=== PATIENT | female | born 1995 | race Caucasian/White ===

== ENCOUNTER 2018-01-23 21:15 | Emergency (ER) | payer BC ==
[2018-01-23] MEDS ORDERED: ACETAMINOPHEN 1000 MG/100 ML VIAL (NON FORMULARY) IVPB ONE (21:47)
[2018-01-23] MEDS ORDERED: SODIUM CHLORIDE 0.9% 1000 ML INFUS.BAG IV ONE (21:47)
[2018-01-23 22:02] VITALS: TEMP 98.5
[2018-01-23] MEDS ORDERED: ACETAMINOPHEN INJECTION 100 ML IVPB ONE (22:07)
--- NOTE | 2018-01-23 22:25 | PDOC ---
History of Present Illness - General History Source: Patient Exam Limitations: No Limitations - History of Present Illness Initial Comments: 01/23/18 22:25 The patient is a 22 year old female with a significant PMH of concussion syndrome who presents to the emergency department with a headache since earlier today. The patient reports that she had been outside in the sun all day. She reports some associated body aching, chills, fatigue and numbness in her fingers. She reports that she has has a similar episode similar to this in the past. She denies any neck pain but endorses some light sensitivity. She denies any sick contact, medication, allergies, drugs or alcohol. The patient denies any other symptoms she denies any fever, vomit, diarrhea, constipation or urinary symptoms. She denies any chest pain, shortness of breath,and dizziness. The patient denies any other complaints. A complete review of 10 out of 10 review of systems is taken and is negative apart from what is previously mentioned below and in the HPI. <Moose Hopkins - Last Filed: 01/23/18 22:25> <John Okeefe - Last Filed: 01/24/18 00:26> - General Chief Complaint: Headache Stated Complaint: BODY ACHES, PRESSURE IN HEAD Time Seen by Provider: 01/23/18 21:22 Past History <Moose Hopkins - Last Filed: 01/23/18 22:25> - Immunization History Immunization Up to Date: Yes - Suicide/Smoking/Psychosocial Hx Smoking History: Never smoked Have you smoked in the past 12 months: No Hx Alcohol Use: No Drug/Substance Use Hx: No Substance Use Type: None <John Okeefe - Last Filed: 01/24/18 00:26> - Past Medical History Allergies/Adverse Reactions: Allergies Allergy/AdvReac Type Severity Reaction Status Date / Time cefdinir Allergy Verified 03/01/16 19:52 Home Medications: Ambulatory Orders Amitriptyline HCl [Elavil -] 20 mg PO HS 03/01/16 Review of Systems - Review of Systems Able to Perform ROS?: Yes Comments:: 01/23/18 22:26 Constitutional: No recent illness; no fever ENT: No sore throat Cardiovascular: No palpitations; no chest pain Pulmonary: No cough; no trouble breathing Gastrointestinal: (+)nausea. no vomiting; no diarrhea Genitourinary: No urinary problems; no hematuria Skin: No rash Lymph system: No swollen glands Musculoskeletal: No joint swelling Neurological: (+)headache. No weakness; oo numbness; no vertigo; no lightheadedness Psychiatric:No anxiety; no depression <Moose Hopkins - Last Filed: 01/23/18 22:25> *Physical Exam - Vital Signs Last Vital Signs Temp Pulse Resp BP Pulse Ox 98.5 F 01/23/18 21:48 - Physical Exam Comments: 01/23/18 22:26 Vitals: Triage vital signs reviewed General Appearance: No acute distress, well nourished, well developed Head: Atraumatic Eyes: Pupils equal reactive round, extraocular movement intact Ears: TM's normal bilaterally Nose: Nares patent bilaterally; no nasal congestion Throat: Posterior oropharynx without erythema, mucous membranes moist Neck: Supple; No nuchal rigidity Chest Wall: Nontender Cardiac: Regular rate and rhythm, no murmurs, no rubs, no gallops Lungs: Clear to auscultation bilateral, good air movement bilaterally Abdomen: Soft, nondistended, normal bowel sounds, nontender to palpation Genitourinary: Rectal: Exam deferred Extremities: Full range of motion to all extremities, no cyanosis, clubbing, or edema Skin: Warm and dry, no rashes or lesions, no rash, no petechiae Neuro: AOX3; Cranial Nerves 2-12 grossly intact, Strength intact to all extremities, Sensation intact to all extremities, gait normal Psych: Normal mood, normal affect <Moose Hopkins - Last Filed: 01/23/18 22:25> - Vital Signs Last Vital Signs Temp Pulse Resp BP Pulse Ox 98.5 F 01/23/18 21:48 <John Okeefe - Last Filed: 01/24/18 00:26> ED Treatment Course - LABORATORY CBC & Chemistry Diagram: 01/23/18 22:40 01/23/18 22:40 <John Okeefe - Last Filed: 01/24/18 00:26> Medical Decision Making - Medical Decision Making 01/24/18 00:26 Well-appearing no apparent distress presents to the ED with subjective warmth headache fatigue fogginess Patient states she was out of the sun all day rectal temperature was performed patient had no fever. Her neck was supple her laboratory analysis was unremarkable she received 1 L fluid and IV Tylenol Reevaluation patient feels much better given no fever no white count improvement in symptomatology with IV fluids and Tylenol diagnosis at this time is most likely heat exhaustion Precautions regarding being outside in the heat discussed with patient. Findings, the need for follow-up, strict return instructions discussed with patient. <John Okeefe - Last Filed: 01/24/18 00:26> *DC/Admit/Observation/Transfer - Attestations Scribe Attestion: 01/23/18 22:27 Documentation prepared by Moose Hopkins, acting as medical diagnostic radiographer for John Okeefe MD. <Moose Hopkins - Last Filed: 01/23/18 22:25> - Discharge Dispostion Decision to Admit order: No <John Okeefe - Last Filed: 01/24/18 00:26> Diagnosis at time of Disposition: Heat exhaustion Qualifiers: Encounter type: initial encounter Qualified Code(s): T67.5XXA - Heat exhaustion , unspecified, initial encounter - Discharge Dispostion Disposition: HOME Condition at time of disposition: Good - Referrals Referrals: [facility] [place] [facility] [Provider Group] - Patient Instructions Printed Discharge Instructions: Heat Exhaustion and Heat Stroke Additional Instructions: Drink plenty of fluids. [id number] Tylenol as needed as directed on package. Avoid heat exposure for the next several days. Return to ED for any severe headache fever or neck pain or for any concerns.
[2018-01-23 22:51] LABS: BASO % 1.3 % (0-2.0); EOS % 0.9 % (0-4.5); HEMOGLOBIN 13.1 GM/dl (10.7-15.3); LYMPH % 29.5 % (8-40); MCH 30.3 pg (25.7-33.7); MCHC 32.7 g/dl (32.0-36.0); MEAN CELL VOLUME 92.7 fl (80-96); MEAN PLT VOLUME 8.9 fl (7.5-11.1); MONO % 7.4 % (3.8-10.2); NEUT % 60.9 % (42.8-82.8); PLATELET COUNT 194 K/MM3 (134-434); RBC 4.32 M/mm3 (3.60-5.2); RDW 12.8 % (11.6-15.6)
[2018-01-23 23:01] LABS: ALBUMIN 4.3 g/dl (3.5-5.0); ALK PHOS 66 U/L (32-92); ANION GAP 7 MMOL/L (8-16); BILIRUBIN,TOTAL 0.8 mg/dl (0.2-1.0); BLOOD UREA NITROGEN 18 mg/dl (7-18); CALCIUM 8.9 mg/dl (8.4-10.2); CHLORIDE 110 mmol/L (98-107); CO2 22 mmol/L (22-28); CREATININE 0.8 mg/dl (0.6-1.3); GLUCOSE,RANDOM 92 mg/dl (74-106); POTASSIUM 4.1 mmol/L (3.5-5.1); SGOT/AST 20 U/L (10-42); SGPT/ALT 15 U/L (10-40); SODIUM 139 mmol/L (136-145); TOT PROT 6.8 g/dl (6.4-8.3)
[2018-01-23 23:02] VITALS: BP 116/58; PULSE 75; BMI 28.3
[2018-01-23 23:38] LABS: PH,URINE 5.5 (4.5-8); URINE APPEARANCE Clear; URINE BILIRUBIN Negative (NEGATIVE); URINE COLOR Yellow; URINE GLUCOSE (UA) Negative (NEGATIVE); URINE KETONE 2+ (NEGATIVE); URINE LEUK ESTERASE Negative (NEGATIVE); URINE NITRITE Negative (NEGATIVE); URINE PROTEIN Negative (NEGATIVE); URINE UROBILINOGEN 0.2 (0.2-1.0)
== END 2018-01-24 00:06 | disposition home or self-care (01) ==
LOC: FER 21:15
PROC: 3E033NZ Introduction of Analgesics, Hypnotics, Sedatives into Peripheral Vein, Percutaneous Approach (ICD-10-PCS; principal; 2018-01-23)
PROC: 3E0337Z Introduction of Electrolytic and Water Balance Substance into Peripheral Vein, Percutaneous Approach (ICD-10-PCS; 2018-01-23)
DX: T67.5XXA Heat exhaustion, unspecified, initial encounter (principal)
CPT/HCPCS: 36415; 80053; 81003; 84703; 85025; 99283-25; J0131; J7030